=== PATIENT | female | born 1930 | race American Indian/Alaskan Native ===

== ENCOUNTER 2019-12-27 12:24 | Emergency (ER) | payer MEDICARE ==
[2019-12-27] MEDS ORDERED: SODIUM CHLORIDE 0.9% 500 ML 500 ML IV ONE (12:49)
[2019-12-27] MEDS ORDERED: ZIPRASIDONE MESYLATE 20 MG VIAL IM ONE (12:57)
[2019-12-27 15:17] LABS: Hematocrit 39.4 % (30.3-42.9); Mean Corpuscular HGB Conc 33 % (30-34); Mean Corpuscular Volume 96 fl (79-97); Platelet Count 245 K/mm3 (140-440); Red Blood Count 4.09 M/mm3 (3.65-5.03); Red Cell Distribution Width 14.6 % (13.2-15.2)
--- NOTE | 2019-12-27 16:01 | Cat Scan Report ---
CT head/brain wo con INDICATION / CLINICAL INFORMATION: 89 years Female; MAIN: altered mental status WO CONTRAST. TECHNIQUE: Routine CT head without contrast. All CT scans at this location are performed using CT dos e reduction for ALARA by means of automated exposure control. COMPARISON: None. FINDINGS: BRAIN / INTRACRANIAL CONTENTS: Prominent calcifications seen in the globus pallidus regions, as well is in the cerebellar hemispheres. Fahr's disease might be a consideration. Otherwise, no acute hemorrhage, mass effect, midline shift, hydrocephalus, or acute, large territori al infarct. Minimal cerebral atrophy. Findings are asymmetrically prominent in the parietal lobes. Mild to modera te degree of hippocampal atrophy suggested bilaterally. There are areas of decreased attenuation in the white matter of the cerebral hemispheres. These are n onspecific findings and may be related to microangiopathy (hypertension, diabetes, atherosclerosis), given the patient's age. It might be difficult to evaluate for small areas of ischemia without diffus ion imaging by MRI. CRANIOCERVICAL JUNCTION: No significant abnormality. ORBITS: No significant abnormality of visualized orbits. SINUSES / MASTOIDS: No significant abnormality in the visualized paranasal sinuses or mastoid air savanna ls. ADDITIONAL FINDINGS: Atherosclerotic disease is seen in the anterior circulation. IMPRESSION: 1. No focal mass, hemorrhage, hydrocephalus, or acute, large territorial infarct. Signer Name: Harrison Griffith MD, III Signed: 12/27/2019 3:56 PM Workstation Name: [id number]
[2019-12-27 16:05] LABS: Alanine Aminotransferase 19 units/L (7-56); Albumin 3.6 g/dL (3.9-5); BUN/Creatinine Ratio 22; Blood Urea Nitrogen 13 mg/dL (7-17); Calcium 9.2 mg/dL (8.4-10.2); Hemolysis Index 16
[2019-12-27 16:35] LABS: Eosinophils % (Manual) 0 % (0.0-4.3); Platelet Estimate Consistent w Auto; RBC Morphology Normal; Total Cells Counted 100
[2019-12-27] MEDS ORDERED: LORazepam 2 MG/ML VIAL IV ONE (16:56)
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
[2019-12-28 13:40] LABS: Bilirubin,Urine NEG (Negative); Blood,Urine NEG (Negative); Color,Urine Yellow (Yellow); Mucus,Urine FEW /HPF; Protein,Urine <15 mg/dL mg/dL (Negative); Urobilinogen,Urine < 2.0 mg/dL (<2.0)
[2019-12-28] MEDS ORDERED: LORazepam 2 MG/ML VIAL IV ONE (19:39)
[2019-12-28] MEDS ORDERED: LORazepam 2 MG/ML VIAL ONE (19:42)
[2019-12-29] MEDS ORDERED: POTASSIUM CHLORIDE ER 20 MEQ TAB PO ONE (15:32)
[2019-12-30 09:05] VITALS: BP 104/63
== END 2019-12-30 10:43 | disposition home or self-care (01) ==
LOC: ED 12:24
DX: F03.90 Unspecified dementia, unspecified severity, without behavioral disturbance, psychotic disturbance, mood disturbance, and anxiety (principal)
CPT/HCPCS: 36415; 70450; 80053; 81001; 82550; 82962; 85007; 85025; 96372; 96374; 96376; 99285; J2060; J3486; J7040